=== PATIENT | female | born 1995 | race African-American/Black ===

== ENCOUNTER 2016-11-21 17:45 | Emergency (ER) | payer SELFPAY ==
--- NOTE | 2016-11-21 18:46 | ER Document Report ---
ED General - General Mode of Arrival: Ambulatory Information source: Patient TRAVEL OUTSIDE OF THE U.S. IN LAST 30 DAYS: No - HPI Onset: Other Severity: None Recently seen / treated by doctor: Yes - General Chief Complaint: Medication Refill Stated Complaint: MEDICATION REFILL Notes: Patient is a 20-year-old female that presents to the emergency department today with complaints of needing a refill on her Seroquel XR 400 mg #90 as well as a prescription for trichomonas treatment. Patient states the pharmacy will not fill her prescription for her standard Seroquel because it was written out of [place], [place]. Patient states she was diagnosed with Trichomonas a few days ago before moving here from [place] however she was not prescribed any medication for this as she was called with the results. Patient requesting both medications but denies any concerning or worsening symptoms. (NENO YEH) Past Medical History - General Information source: Patient - Social History Smoking Status: Never Smoker Cigarette use (# per day): No Frequency of alcohol use: None Drug Abuse: None Lives with: Family Family History: Reviewed & Not Pertinent Psychiatric Medical History: Reports: Hx Anxiety, Hx Depression Surgical Hx: Negative Review of Systems - Review of Systems Constitutional: No symptoms reported EENT: No symptoms reported Cardiovascular: No symptoms reported Respiratory: No symptoms reported Gastrointestinal: No symptoms reported Genitourinary: No symptoms reported Female Genitourinary: No symptoms reported Musculoskeletal: No symptoms reported Skin: No symptoms reported Hematologic/Lymphatic: No symptoms reported Neurological/Psychological: No symptoms reported -: Yes All other systems reviewed and negative Physical Exam - Vital signs Vitals: Temp Pulse Resp BP Pulse Ox 98.3 F 99 16 135/73 H 99 11/21/16 17:51 11/21/16 17:51 11/21/16 17:51 11/21/16 17:51 11/21/16 17:51 - Notes Notes: Physical Exam: General: Alert, appears well. HEENT: Normocephalic. Atraumatic. PERRL. Extraocular movements intact. Oropharynx clear. Neck: Supple. Non-tender. Respiratory: No respiratory distress. Clear and equal breath sounds bilaterally. Cardiovascular: Regular rate and rhythm. Abdominal: Obese. Non-tender. No distension. Normal Bowel Sounds. Back: Non-tender. No deformity or step off. Extremities: Moves all four extremities. Upper extremities: Normal inspection. Normal ROM. Lower extremities: Normal inspection. No edema. Normal ROM. Neurological: Normal cognition. AAOx4. Normal speech. Psychological: Normal affect. Normal Mood. Skin: Warm. Dry. Normal color. (NENO YEH) Course - Re-evaluation Re-evalutation: 11/21/16 Patient is a pleasant 20-year-old female who comes in requesting a prescription for Seroquel as her out of state prescription from [place] cannot be filled here today. Patient also states that she was told she had trichomonas and did not receive treatment for an [facility] [place]. Patient would like to be given Flagyl here in the emergency department. She does not want a pelvic exam. Patient has no other complaints. She'll be discharged home and is to follow-up with a primary care doctor and also mental health provider. No suicidal or homicidal ideation. Normal mood and affect. Stable for discharge. (JOHANA FOREMAN) - Vital Signs Vital signs: Temp Pulse Resp BP Pulse Ox 98.4 F 67 16 116/54 L 99 11/21/16 19:29 11/21/16 19:29 11/21/16 19:29 11/21/16 19:29 11/21/16 19:29 Discharge - Discharge Clinical Impression: Trichomonas contact, untreated, Medication refill Condition: Stable Disposition: HOME, SELF-CARE Instructions: Trichomonas Infection (OM), Depression (OM), Family Physicians / Practices Additional Instructions: Please follow-up with a mental health care provider when you are able. Prescriptions: Quetiapine Fumarate [Seroquel Xr] 400 mg PO DAILY #30 tab.er.24h Scribe Attestation: 11/21/16 23:44 I personally performed the services described in the documentation, reviewed and edited the documentation which was dictated to the scribe in my presence, and it accurately records my words and actions. (JOHANA FOREMAN) Scribe Documentation - Scribe Written by Geovanni:: Geovanni Interiano, 11/21/20161940 acting as scribe for :: Franci
[2016-11-21] MEDS ORDERED: METRONIDAZOLE 500 MG TABLET PO ONE (19:06)
[2016-11-21 19:30] VITALS: BP 116/54
== END 2016-11-21 20:02 | disposition home or self-care (01) ==
LOC: ER 17:45
DX: Z76.0 Encounter for issue of repeat prescription (principal); A59.9 Trichomoniasis, unspecified; Z79.899 Other long term (current) drug therapy
CPT/HCPCS: 99281

== ENCOUNTER 2017-02-21 19:10 | Emergency (ER) | payer SELFPAY ==
[2017-02-21 19:28] VITALS: BP 127/84
--- NOTE | 2017-02-21 20:02 | ER Document Report ---
HPI - HPI Patient complains to provider of: right ear pain Pain Level: 4 Context: 21 yo female c/o right ear pain x 1 day. no fever. Associated Symptoms: None Exacerbated by: Denies Relieved by: Denies Similar symptoms previously: No Recently seen / treated by doctor: No - ROS Systems Reviewed and Negative: Yes All other systems reviewed and negative - REPRODUCTIVE LMP: 02-09-17 - DERM Skin Color: Normal Past Medical History - General Information source: Patient - Social History Smoking Status: Current Every Day Smoker Frequency of alcohol use: None Drug Abuse: None Lives with: Family Family History: Reviewed & Not Pertinent Patient has suicidal ideation: No Patient has homicidal ideation: No - Medical History Medical History: Negative Renal/ Medical History: Denies: Hx Peritoneal Dialysis Psychiatric Medical History: Reports: Hx Anxiety, Hx Depression - Immunizations Hx Diphtheria, Pertussis, Tetanus Vaccination: Yes Vertical Provider Document - CONSTITUTIONAL Agree With Documented VS: Yes Exam Limitations: No Limitations General Appearance: WD/WN, No Apparent Distress, Obese - INFECTION CONTROL TRAVEL OUTSIDE OF THE U.S. IN LAST 30 DAYS: No - HEENT HEENT: Atraumatic, PERRLA. negative: Tympanic Membrane Bulging - TM dull, + effusion - NECK Neck: Normal Inspection, Supple - RESPIRATORY Respiratory: Breath Sounds Normal, No Respiratory Distress O2 Sat by Pulse Oximetry: 98 - CARDIOVASCULAR Cardiovascular: Regular Rate, Regular Rhythm - GI/ABDOMEN Gastrointestinal: Abdomen Soft, Abdomen Non-Tender - MUSCULOSKELETAL/EXTREMETIES Musculoskeletal/Extremeties: MAEW, FROM, Non-Tender - NEURO Level of Consciousness: Awake, Alert, Appropriate Course - Vital Signs Vital signs: Temp Pulse Resp BP Pulse Ox 98.2 F 99 17 127/84 H 98 02/21/17 19:26 02/21/17 19:26 02/21/17 19:26 02/21/17 19:26 02/21/17 19:26 Discharge - Discharge Clinical Impression: Right serous otitis media Qualifiers: Chronicity: acute Recurrence: not specified as recurrent Qualified Code(s): H65.01 - Acute serous otitis media, right ear Condition: Stable Disposition: HOME, SELF-CARE Instructions: Serous Otitis Media ([facility]), Decongestant-Antihistamine Medication ([facility]) Additional Instructions: You physical exam is consistant with serous otitis media. which is fluids behind the ear drum, not infection Recommend over the counter anthi-histamine decongestant such as Meghan D or Zytrec D Motrin for discomfort follow up with your primary care if symptoms persist
== END 2017-02-21 20:17 | disposition home or self-care (01) ==
LOC: ER 19:10
DX: H65.01 Acute serous otitis media, right ear (principal); H92.01 Otalgia, right ear; F17.200 Nicotine dependence, unspecified, uncomplicated
CPT/HCPCS: 99282

== ENCOUNTER 2018-01-16 01:02 | Emergency (ER) | payer MEDICAID ==
[2018-01-16 01:24] VITALS: BP 128/74
[2018-01-16] MEDS ORDERED: LIDOCAINE 2% VISCOUS SOLN 20 ML UDCUP PO ONE (01:58)
[2018-01-16] MEDS ORDERED: METOCLOPRAMIDE HCL ORAL SOLN 10 MG/10 ML UDCUP PO ONE (01:58)
[2018-01-16] MEDS ORDERED: MAG HYDROX/AL HYDROX/SIMETH SUSP 30 ML UDCUP PO ONE (01:58)
--- NOTE | 2018-01-16 02:04 | ER Document Report ---
HPI - HPI Patient complains to provider of: medication side effects Pain Level: 3 Context: Patient is a 22-year-old female who is currently at 11 weeks gestation that comes to the ED for chief complaint of not being able to tolerate clindamycin. She was diagnosed with bacterial vaginosis by her primary care, placed on Flagyl which made her have nausea and vomiting reportedly, she was switched to clindamycin and when she took her dose tonight she states she became nauseated and vomited. She states that when she vomited she started feeling discomfort in her throat and she still has discomfort in her throat. She has been able to swallow food and water without difficulty since the vomiting episode. She denies any other complaints including denying abdominal pain, bleeding, dizziness. She does not have discharge vaginally. Past Medical History - General Information source: Patient - Social History Smoking Status: Never Smoker Frequency of alcohol use: None Drug Abuse: None Lives with: Family Family History: Reviewed & Not Pertinent Renal/ Medical History: Denies: Hx Peritoneal Dialysis Psychiatric Medical History: Reports: Hx Anxiety, Hx Depression Surgical Hx: Negative - Immunizations Hx Diphtheria, Pertussis, Tetanus Vaccination: Yes Vertical Provider Document - CONSTITUTIONAL General Appearance: WD/WN, No Apparent Distress - INFECTION CONTROL TRAVEL OUTSIDE OF THE U.S. IN LAST 30 DAYS: No - HEENT HEENT: Atraumatic, Normal ENT Exam, Normocephalic - NECK Neck: Normal Inspection - RESPIRATORY Respiratory: Breath Sounds Normal, No Respiratory Distress - CARDIOVASCULAR Cardiovascular: Regular Rate, Regular Rhythm - GI/ABDOMEN Gastrointestinal: Abdomen Soft, Abdomen Non-Tender - BACK Back: Normal Inspection - NEURO Level of Consciousness: Awake, Alert, Appropriate - DERM Integumentary: Warm, Dry, No Rash Course - Re-evaluation Re-evalutation: Patient given GI cocktail, after this she was asymptomatic. Unremarkable physical exam, unremarkable vital signs. Because she has been diagnosed with bacterial vaginosis, because she is not tolerating Flagyl or clindamycin but she is tolerating food and other medications without difficulty, she will be given MetroGel for treatment of BV instead. I discussed this with patient in detail. Discussed follow-up and return precautions. She states satisfaction and agreement with plan. - Vital Signs Vital signs: Temp Pulse Resp BP Pulse Ox 98.7 F 74 20 128/74 H 100 01/16/18 01:12 01/16/18 01:12 01/16/18 01:12 01/16/18 01:12 01/16/18 01:12 Discharge - Discharge Clinical Impression: Medication side effects Condition: Stable Disposition: HOME, SELF-CARE Additional Instructions: Recommendation is for you to stop the clindamycin and instead use the MetroGel for treatment of bacterial vaginosis. Follow-up with your provider for additional evaluation and management. Return for any concerning symptoms including returned vomiting, abdominal pain, fever, or any other concerning symptoms. Prescriptions: Metronidazole [Metrogel-Vaginal] 70 gm VG ASDIR #1 gel.w.appl
== END 2018-01-16 03:09 | disposition home or self-care (01) ==
LOC: ER 01:02
DX: O9A.211 Injury, poisoning and certain other consequences of external causes complicating pregnancy, first trimester (principal); R11.2 Nausea with vomiting, unspecified; T36.95XA Adverse effect of unspecified systemic antibiotic, initial encounter; O23.591 Infection of other part of genital tract in pregnancy, first trimester; B96.89 Other specified bacterial agents as the cause of diseases classified elsewhere; O26.891 Other specified pregnancy related conditions, first trimester; R09.89 Other specified symptoms and signs involving the circulatory and respiratory systems; Z3A.11 11 weeks gestation of pregnancy
CPT/HCPCS: 99283; J3490 ×3

== ENCOUNTER 2018-03-31 12:35 | Emergency (ER) | payer MEDICAID ==
[2018-03-31 12:48] VITALS: BP 123/62
--- NOTE | 2018-03-31 14:09 | ER Document Report ---
ED Medical Screen (RME) - General Chief Complaint: Vaginal Bleeding Stated Complaint: ABDOMINAL PAIN Time Seen by Provider: 03/31/18 14:01 TRAVEL OUTSIDE OF THE U.S. IN LAST 30 DAYS: No - HPI Notes: 03/31/18 14:08 Pt is a approx 22-23 weeks c/o bleeding, cramping. I called [facility] is state to send her directly to them. pt in agreement. Vitals acceptable. - Related Data Allergies/Adverse Reactions: No Known Allergies Allergy (Verified 03/31/18 12:38) Past Medical History Renal/ Medical History: Denies: Hx Peritoneal Dialysis Psychiatric Medical History: Reports: Hx Anxiety, Hx Depression - Immunizations Hx Diphtheria, Pertussis, Tetanus Vaccination: Yes Physical Exam - Vital signs Vitals: Temp Pulse Resp BP Pulse Ox 98.3 F 92 20 123/62 100 03/31/18 12:48 03/31/18 12:48 03/31/18 12:48 03/31/18 12:48 03/31/18 12:48 Course - Vital Signs Vital signs: Temp Pulse Resp BP Pulse Ox 98.3 F 92 20 123/62 100 03/31/18 12:48 03/31/18 12:48 03/31/18 12:48 03/31/18 12:48 03/31/18 12:48 Doctor's Discharge - Discharge Referrals: DONNY CUMMINS DO [Primary Care Provider] - Follow up as needed
[2018-03-31 14:24] LABS: ABSOLUTE BASOPHILS # (AUTO) 0.1 10^3/uL (0.0-0.2); ABSOLUTE EOSINOPHILS # (AUTO) 0.1 10^3/uL (0.0-0.6); ABSOLUTE LYMPHOCYTES (AUTO) 1.8 10^3/uL (0.5-4.7); ABSOLUTE MONOCYTES (AUTO) 0.5 10^3/uL (0.1-1.4); ABSOLUTE NEUT (AUTO) 9.3 10^3/uL (1.7-8.2); BASOPHILS % (AUTO) 0.7 % (0-2); EOSINOPHILS % (AUTO) 0.6 % (0-6); HEMATOCRIT 30.7 % (36.0-47.0); HEMOGLOBIN 10.3 g/dL (12.0-15.5); LYMPHOCYTES % (AUTO) 15.2 % (13-45); MEAN CORPUSCULAR HEMOGLOBIN 28.6 pg (27.0-33.4); MEAN CORPUSCULAR HGB CONC 33.6 g/dL (32.0-36.0); MEAN CORPUSCULAR VOLUME 85 fl (80-97); MONOCYTES % (AUTO) 4.3 % (3-13); PLATELET COUNT 299 10^3/uL (150-450); RED CELL DISTRIBUTION WIDTH 14.7 % (11.5-14.0); SEGMENTED NEUTROPHILS % (AUTO) 79.2 % (42-78); TOTAL CELLS COUNTED % (AUTO) 100 %; WHITE BLOOD COUNT 11.7 10^3/uL (4.0-10.5)
[2018-03-31 14:36] LABS: APPEARANCE,URINE CLOUDY; BILIRUBIN,URINE NEGATIVE (NEGATIVE); COLOR,URINE YELLOW; GLUCOSE, URINE NEGATIVE (NEGATIVE); KETONES,URINE NEGATIVE (NEGATIVE); LEUKOCYTE ESTERASE,URINE LARGE (NEGATIVE); NITRITE,URINE NEGATIVE (NEGATIVE); PROTEIN,URINE NEGATIVE (NEGATIVE); URINE SPECIFIC GRAVITY 1.012; UROBILINOGEN,URINE NEGATIVE mg/dL (<2.0)
[2018-03-31 14:51] LABS: ALANINE AMINOTRANSFERASE 27 U/L (9-52); ALBUMIN 3.7 g/dL (3.5-5.0); ALKALINE PHOSPHATASE 90 U/L (38-126); ANION GAP 13 (5-19); ASPARTATE AMINO TRANSFERASE 24 U/L (14-36); BILIRUBIN,DIRECT 0.3 mg/dL (0.0-0.4); BILIRUBIN,TOTAL 0.6 mg/dL (0.2-1.3); BLOOD UREA NITROGEN 4 mg/dL (7-20); CALCIUM 9.3 mg/dL (8.4-10.2); CARBON DIOXIDE 20 mmol/L (22-30); CHLORIDE 105 mmol/L (98-107); GLUCOSE 76 mg/dL (75-110); POTASSIUM 3.9 mmol/L (3.6-5.0); SODIUM 137.8 mmol/L (137-145); TOTAL PROTEIN 7.8 g/dL (6.3-8.2)
== END 2018-03-31 14:21 | disposition admitted as inpatient to this hospital (09) ==
LOC: ER 12:35
DX: O46.90 Antepartum hemorrhage, unspecified, unspecified trimester (principal); O26.899 Other specified pregnancy related conditions, unspecified trimester; R10.9 Unspecified abdominal pain; Z3A.00 Weeks of gestation of pregnancy not specified
CPT/HCPCS: 36415; 80053; 81001; 85025; 86900; 86901; 87086; 87088; 87186; 99284

== ENCOUNTER 2018-03-31 14:16 | Outpatient (CLI) | payer MEDICAID ==
[2018-03-31 15:58] LABS: T.VAGINALIS (WET MOUNT) NO TRICHOMONAS SEEN; WBCS (WET MOUNT) 2+ WBCS SEEN; YEAST (WET MOUNT) NO YEAST SEEN
[2018-03-31 15:59] LABS: RBCS (WET MOUNT) RARE RBCS SEEN
--- NOTE | 2018-03-31 16:18 | Admission Physical ---
Datetime Report Generated by CPN: 03/31/2018 16:18 CURRENT ADMISSION Chief Complaint: Suspected Ruptured Membranes Indication for Induction: Not Applicable Admit Impression : , Intrauterine ; Ruptured Membranes Admit Impression- Other: incometent cervix Admit Plan: Admit to Unit ALLERGIES Medication Allergies: No Medication Allergies: No Known Allergies (03/31/2018) Latex: No Latex Allergies Food Allergies: no Environmental Allergies: no OBSTETRICAL HISTORY EDC: 08/05/2018 00:00 : 3 Para: 0 Term: 0 : 0 SAB: 0 IAB: 2 Ectopic: 0 Livin Cesareans: 0 VBACs: 0 Multiple Births: 0 PHYSICAL EXAM General: Normal HEENT: Normal Neurologic: Normal Thyroid: Normal Heart: Normal Lungs: Normal Breast: Deferred Back: Normal Abdomen: Normal Genitourinary Exam: Normal Extremities: Normal DTRs: Normal Pelvic Type: Adequate Vital Signs: Reviewed MEMBRANES Pooling: Positive Membranes: Ruptured FETUS A EGA: 21.6 FHR- Baseline: 150 Presentation: Breech Admit Comment: Will admit and begin observation. INFORMED CONSENT Signature: with User ID: Nell
--- NOTE | 2018-03-31 17:16 | RADIOLOGY REPORT (SQ) ---
EXAM DESCRIPTION: U/S OB LIMITED COMPLETED DATE/TIME: 03/31/2018 4:54 pm REASON FOR STUDY: growth and position COMPARISON: None. TECHNIQUE: Limited transabdominal grayscale ultrasound for evaluation of specific requested obstetri cassie parameters. LIMITATIONS: None. FINDINGS: CERVICAL LENGTH: Cervix is open 5.7 cm. Bulging membranes are seen. FHR: 152 beats per minute. PRESENTATION: Breech. OTHER: Gestation of 20 weeks 5 days. IMPRESSION: 2nd trimester with open cervix and bulging membranes. Findings as above. TECHNICAL DOCUMENTATION: JOB ID: [id number] [employer]- All Rights Reserved Reading location - IP/workstation name: [email or web address]
[2018-03-31 17:33] LABS: CHLAM PCR NOT DETECTED (NOT DETECT); GON PCR NOT DETECTED (NOT DETECT)
--- NOTE | 2018-03-31 18:36 | PDOC TRANSFER SUMMARY ---
General Admission Date/PCP: DONNY CUMMINS DO Admission Date: 03/31/18 Transfer Date: 03/31/18 Accepting Facility: [facility] Accepting Physician: Kuldeep Resuscitation Status: Full Code - Transfer Diagnosis (1) premature rupture of membranes Is this a current diagnosis for this admission?: Yes - Transfer Medications Home Medications: Vit,Calc76/Iron/Folic [Prenatabs Rx Tablet] 1 each PO DAILY 03/31/18 - Allergies Allergies/Adverse Reactions: No Known Allergies Allergy (Verified 03/31/18 12:38) Hospital Course Hospital Course: She has an incompetent cervix and has membranes at a dialated cervix. The baby is in a footling breech presentation. Gestational age is 22wks. We are transferring her at her request for possible resusitation of a fetus at delivery. Physical Exam Vital Signs: Intake & Output 03/30/18 03/31/18 04/01/18 06:59 06:59 06:59 Weight 123.3 kg General appearance: PRESENT: no acute distress Head exam: PRESENT: atraumatic Respiratory exam: PRESENT: accessory muscle use Cardiovascular exam: PRESENT: bradycardia Vascular exam: PRESENT: normal capillary refill Neurological exam: PRESENT: alert - cervix on sterile spec shows membranes at the cervix. Some fluid in the vagina. Results Impressions: Obstetrics Ultrasound 03/31/18 16:07 IMPRESSION: 2nd trimester with open cervix and bulging membranes. Findings as above. Plan Discharge Plan: Plan transfer at her request for evaluation.
== END 2018-03-31 20:15 | disposition short-term general hospital (02) ==
LOC: LC 14:16
PROVIDERS: ATTEND Obstetrics & Gynecology
PROC: 4A1HXCZ Monitoring of Products of Conception, Cardiac Rate, External Approach (ICD-10-PCS; principal; 2018-03-31)
DX: O42.912 Preterm premature rupture of membranes, unspecified as to length of time between rupture and onset of labor, second trimester (principal); O34.32 Maternal care for cervical incompetence, second trimester; Z3A.22 22 weeks gestation of pregnancy
CPT/HCPCS: 76815; 87210; 87491; 87591

== ENCOUNTER 2018-07-03 12:34 | Emergency (ER) | payer MEDICAID ==
[2018-07-03 12:39] VITALS: BP 135/74
--- NOTE | 2018-07-03 13:11 | ER Document Report ---
ED Hand/Wrist Injury - General Mode of Arrival: Ambulatory Information source: Patient TRAVEL OUTSIDE OF THE U.S. IN LAST 30 DAYS: No <NENO YEH - Last Filed: 07/03/18 13:20> <DUGLAS SEXTON - Last Filed: 07/03/18 13:39> - General Chief Complaint: Hand Pain Stated Complaint: HAND PAIN Time Seen by Provider: 07/03/18 13:04 Notes: 22-year-old female that presents to the emergency department today with complaints of bilateral wrist pain with associated finger numbness across all 10 fingers. Patient states she has had the symptoms for approximately a week and a half. Patient states her symptoms are the worst when she wakes up and while sleeping. Patient denies any new activities, injury, trauma, swelling, or new medications. (NENO YEH) - Related Data Allergies/Adverse Reactions: No Known Allergies Allergy (Verified 03/31/18 12:38) Past Medical History - General Information source: Patient - Social History Smoking Status: Current Every Day Smoker Cigarette use (# per day): Yes Chew tobacco use (# tins/day): No Frequency of alcohol use: None Drug Abuse: None Family History: Reviewed & Not Pertinent Patient has suicidal ideation: No Patient has homicidal ideation: No Renal/ Medical History: Denies: Hx Peritoneal Dialysis Psychiatric Medical History: Reports: Hx Anxiety, Hx Depression - Immunizations Hx Diphtheria, Pertussis, Tetanus Vaccination: Yes <NENO YEH - Last Filed: 07/03/18 13:20> Review of Systems - Review of Systems Constitutional: No symptoms reported EENT: No symptoms reported Cardiovascular: No symptoms reported Respiratory: No symptoms reported Gastrointestinal: No symptoms reported Genitourinary: No symptoms reported Female Genitourinary: No symptoms reported Musculoskeletal: See HPI, Other - bilateral wrist pain Skin: No symptoms reported Hematologic/Lymphatic: No symptoms reported Neurological/Psychological: See HPI, Tingling - finger tips -: Yes All other systems reviewed and negative <NENO YEH - Last Filed: 07/03/18 13:20> Physical Exam <NENO YEH - Last Filed: 07/03/18 13:20> <DUGLAS SEXTON - Last Filed: 07/03/18 13:39> - Vital signs Vitals: Temp Pulse Resp BP Pulse Ox 99.0 F 91 16 135/74 H 98 07/03/18 12:38 07/03/18 12:38 07/03/18 12:38 07/03/18 12:38 07/03/18 12:38 - Notes Notes: PHYSICAL EXAM GENERAL: Alert, interacts well. No acute distress. HEAD: Normocephalic, atraumatic. EYES: Pupils equal, round, and reactive to light. Extraocular movements intact. ENT: Oral mucosa moist, tongue midline. NECK: Full range of motion. Supple. Trachea midline. LUNGS: No respiratory distress. HEART: Regular rate and rhythm. EXTREMITIES: Moves all 4 extremities spontaneously. Radial pulses 2/4 bilaterally. Positive Tinel's sign and positive Phalen's test. Denies worsening of pain with elevation of arms. NEUROLOGICAL: Alert and oriented x3. Normal speech. Sensation intact distally. PSYCH: Normal affect, normal mood. SKIN: Warm, dry, normal turgor. No rashes or lesions noted. (NENO YEH) Course <NENO YEH - Last Filed: 07/03/18 13:20> <DUGLAS SEXTON - Last Filed: 07/03/18 13:39> - Re-evaluation Re-evalutation: 07/03/18 13:11 Tinel and Phalen's test positive bilaterally, patient also has neuropathy and pain in the fourth and fifth digit. Suspicious for both median and ulnar neuropathy. Discussed with patient that stretching and splinting will help with the median neuropathy however she also has signs of ulnar neuropathy which usually comes from the elbow. Instructed patient on stretching and anti- inflammatories. Discussed with patient that if her symptoms do not improve within the next week and a half she will need to follow-up with orthopedic surgery. Discharge to home. No recent injury, no indication for x-rays, minimal suspicion for cervical neuropathy given the distribution of the pain. (DUGLAS SEXTON) - Vital Signs Vital signs: Temp Pulse Resp BP Pulse Ox 99.0 F 91 16 135/74 H 98 07/03/18 12:38 07/03/18 12:38 07/03/18 12:38 07/03/18 12:38 07/03/18 12:38 Procedures - Immobilization right wrist Pre-Proc Neuro Vasc Exam: Abnormal - tingling Immobilizer type: Cock-up Performed by: REBECA Post-Proc Neuro Vasc Exam: Unchanged from pre-exam Alignment checked and good: Yes left wrist Pre-Proc Neuro Vasc Exam: Abnormal - tingling Immobilizer type: Cock-up Performed by: REBECA Post-Proc Neuro Vasc Exam: Unchanged from pre-exam Alignment checked and good: Yes <DUGLAS SEXTON - Last Filed: 07/03/18 13:39> Discharge <NENO YEH - Last Filed: 07/03/18 13:20> <DUGLAS SEXTON - Last Filed: 07/03/18 13:39> - Discharge Clinical Impression: Bilateral hand pain, 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 This syndrome is due to pressure on a nerve in the wrist. The pressure may be caused by an old injury, hard work using the wrist, work involving repeated motions of the hand, wrist positions that keep pressure on the joint, or arthritis in the wrist. Typical symptoms are tingling, numbness, and pain in the palm, thumb, index and middle fingers, and one side of the ring finger. Often a splint, ice packs, and antiinflammatory medication make the symptoms go away. If the physician feels that your problem is chronic, you will be referred to a specialist for further care. If symptoms do not go away, carpal tunnel syndrome may require surgery. You should call the doctor if pain increases, if you develop difficulty using the thumb or fingers, or if major swelling occurs. Please take ibuprofen 600 mg every 8 hours as needed for pain over the next 3 days. Forms: Return to Work Referrals: DONNY CUMMINS DO [Primary Care Provider] - Follow up as needed CONSTANZA LEE DO [ACTIVE STAFF] - Follow up in 1 month Scribe Attestation: 07/03/18 13:39 I personally performed the services described in the documentation, reviewed and edited the documentation which was dictated to the scribe in my presence, and it accurately records my words and actions. (DUGLAS SEXTON) Scribe Documentation - Scribe Written by Cedibe:: Geovanni Interiano, 07/03/2018 1324 acting as scribe for :: Juliet <NENO YEH - Last Filed: 07/03/18 13:20>
== END 2018-07-03 13:20 | disposition home or self-care (01) ==
LOC: ER 12:34
DX: G56.23 Lesion of ulnar nerve, bilateral upper limbs (principal); G56.13 Other lesions of median nerve, bilateral upper limbs; M79.641 Pain in right hand; M79.642 Pain in left hand; M25.531 Pain in right wrist; M25.532 Pain in left wrist; R20.0 Anesthesia of skin; F17.210 Nicotine dependence, cigarettes, uncomplicated
CPT/HCPCS: 99283; L3908 ×2

== ENCOUNTER 2019-04-17 14:46 | Emergency (ER) | payer SELFPAY ==
--- NOTE | 2019-04-17 15:08 | ER Document Report ---
ED Medical Screen (RME) - General Chief Complaint: Vaginal Discharge Stated Complaint: VAGINAL ITCH Time Seen by Provider: 04/17/19 15:06 Primary Care Provider: DONNY CUMMINS DO [Primary Care Provider] - Follow up as needed Mode of Arrival: Ambulatory Information source: Patient Notes: 23-year-old female presented to ED for complaint of vaginal discharge with odor vaginal itching. She states is been for several days. She is alert oriented respirations regular and unlabored speaking in full sentences walks with even steady gait. I have greeted and performed a rapid initial assessment of this patient. A comprehensive ED assessment and evaluation of the patient, analysis of test results and completion of medical decision making process will be conducted by an additional ED providers. TRAVEL OUTSIDE OF THE [place]. IN LAST 30 DAYS: No - Related Data Allergies/Adverse Reactions: No Known Allergies Allergy (Verified 04/17/19 14:48) Past Medical History - Social History Frequency of alcohol use: None Drug Abuse: None Renal/ Medical History: Denies: Hx Peritoneal Dialysis Psychiatric Medical History: Reports: Hx Anxiety, Hx Depression - Immunizations Hx Diphtheria, Pertussis, Tetanus Vaccination: Yes Physical Exam - Vital signs Vitals: Temp Pulse Resp BP Pulse Ox 98.7 F 107 H 20 130/80 H 96 04/17/19 14:51 04/17/19 14:51 04/17/19 14:51 04/17/19 14:51 04/17/19 14:51 Course - Vital Signs Vital signs: Temp Pulse Resp BP Pulse Ox 98.7 F 107 H 20 130/80 H 96 04/17/19 14:51 04/17/19 14:51 04/17/19 14:51 04/17/19 14:51 04/17/19 14:51 Doctor's Discharge - Discharge Referrals: DONNY CUMMINS DO [Primary Care Provider] - Follow up as needed
--- NOTE | 2019-04-17 16:22 | ER Document Report ---
ED GI/ - General Chief Complaint: Vaginal Discharge Stated Complaint: VAGINAL ITCH Time Seen by Provider: 04/17/19 15:06 Primary Care Provider: DONNY CUMMINS DO [NO LOCAL MD] - Follow up as needed Mode of Arrival: Ambulatory Notes: Patient is a 23-year-old female presents to the emergency department with a chief complaint of vaginal discharge. Patient states over the past week she has had an increase in vaginal discharge that is white to clear in color. Patient states there is an odor. Patient states she feels like her underwear is always wet. Patient states she has not had any itching. Patient denies pelvic pain, abdominal pain, nausea, vomiting or diarrhea. Patient reports she is sexually active and is not on any control currently. Patient reports her last menstrual cycle was March 27. Patient states she is not concerned for sexually transmitted diseases. Patient states she may have bacterial vaginosis. Patient denies urinary symptoms. TRAVEL OUTSIDE OF THE [place] IN LAST 30 DAYS: No - Related Data Allergies/Adverse Reactions: No Known Allergies Allergy (Verified 04/17/19 14:48) Past Medical History - General Information source: Patient - Social History Smoking Status: Never Smoker Frequency of alcohol use: None Drug Abuse: None Lives with: Family Family History: Reviewed & Not Pertinent Patient has suicidal ideation: No Patient has homicidal ideation: No - Past Medical History Cardiac Medical History: Reports: None Pulmonary Medical History: Reports: None EENT Medical History: Reports: None Neurological Medical History: Reports: None Endocrine Medical History: Reports: None Renal/ Medical History: Reports: None. Denies: Hx Peritoneal Dialysis Malignancy Medical History: Reports: None GI Medical History: Reports: None Musculoskeletal Medical History: Reports None Skin Medical History: Reports None Psychiatric Medical History: Reports: Hx Anxiety, Hx Depression Traumatic Medical History: Reports: None Infectious Medical History: Reports: None Surgical Hx: Negative - Immunizations Hx Diphtheria, Pertussis, Tetanus Vaccination: Yes Review of Systems - Review of Systems Constitutional: No symptoms reported EENT: No symptoms reported Cardiovascular: No symptoms reported Respiratory: No symptoms reported Gastrointestinal: No symptoms reported Genitourinary: No symptoms reported Female Genitourinary: See HPI Musculoskeletal: No symptoms reported Skin: No symptoms reported Hematologic/Lymphatic: No symptoms reported Neurological/Psychological: No symptoms reported Physical Exam - Vital signs Vitals: Temp Pulse Resp BP Pulse Ox 98.7 F 107 H 20 130/80 H 96 04/17/19 14:51 04/17/19 14:51 04/17/19 14:51 04/17/19 14:51 04/17/19 14:51 Interpretation: Tachycardic - Notes Notes: GENERAL: Well-appearing, well-nourished and in no acute distress. HEAD: Atraumatic, normocephalic. EYES: Pupils equal round and reactive to light, extraocular movements intact, sclera anicteric, conjunctiva are normal. ENT: TMs normal, nares patent, oropharynx clear without exudates. Moist mucous membranes. NECK: Normal range of motion, supple without lymphadenopathy or JVD. LUNGS: Breath sounds clear to auscultation bilaterally and equal. No wheezes rales or rhonchi. HEART: Regular rate and rhythm without murmurs, rubs or gallops. ABDOMEN: Soft, nontender, normoactive bowel sounds. No guarding, no rebound. No masses appreciated. BACK: No cervical, thoracic, lumbar midline tenderness. No saddle anesthesia, normal distal neurovascular exam. GENITOURINARY: Deferred. EXTREMITIES: Normal range of motion, no pitting or edema. No clubbing or c yanosis. NEUROLOGICAL: Cranial nerves II through XII grossly intact. Normal speech, normal gait. PSYCH: Normal mood, normal affect. SKIN: Warm, Dry, normal turgor, no rashes or lesions noted. Course - Re-evaluation Re-evalutation: 04/17/19 16:22 We will obtain a urinalysis, hCG and a wet mount with GC chlamydia. Patient is in agreement with this plan. 04/17/19 17:11 Wet mount was unremarkable did not show signs of bacterial vaginosis, trichomonas or yeast. Urinalysis is pending. Urine hCG is negative. - Vital Signs Vital signs: Temp Pulse Resp BP Pulse Ox 98.6 F 90 16 118/62 99 04/17/19 16:57 04/17/19 16:57 04/17/19 16:57 04/17/19 16:57 04/17/19 16:57 - Laboratory Laboratory results interpreted by me: 04/17/19 16:40 Urine Urobilinogen 2.0 H Ur Leukocyte Esterase TRACE H Laboratory 04/17/19 04/17/19 16:40 16:40 Urine HCG, Qual NEGATIVE Epi Cells (Wet Prep) 3+ EPITHELIALS SEEN Trichomonas (Wet Prep) NO TRICHOMONAS SEEN Vaginal WBC RARE WBCS SEEN Vaginal RBC NO RBCS SEEN Vaginal Yeast NO YEAST SEEN Procedures - Pelvic Exam Pelvic exam Time completed: 16:40 Cultures obtained: Yes Wet prep obtained: Yes Witnessed by: [facility] Notes: 04/17/19 16:41 External genitalia was unremarkable without lesions, swelling or erythema. Patient tolerated the insertion of the speculum well. Also able to visualize the cervix which was closed. There was a thick white vaginal discharge. Patient did not have any pain with the movement of the speculum. Discharge - Discharge Clinical Impression: Vaginal discharge Condition: Stable Disposition: HOME, SELF-CARE Additional Instructions: Today you are seen in the emergency department for vaginal discharge. Your testing was negative for yeast, bacterial vaginosis, trichomonas. You do not have a urinary tract infection and your test was negative. I have added on a urine culture and you will be contacted if you do require antibiotics for your urine. I am unsure why you are having an increase in your vaginal discharge. We did test you for gonorrhea and chlamydia and you will be contacted within the next 24 to 48 hours if you require an antibiotic for this. Please return to the emergency department if you develop pelvic pain, change in your vaginal discharge, fever, abdominal pain, nausea, vomiting or any concerning signs or symptoms. Referrals: DONNY CUMMINS DO [NO LOCAL MD] - Follow up as needed
[2019-04-17 16:56] LABS: RBCS (WET MOUNT) NO RBCS SEEN; T.VAGINALIS (WET MOUNT) NO TRICHOMONAS SEEN; WBCS (WET MOUNT) RARE WBCS SEEN; YEAST (WET MOUNT) NO YEAST SEEN
[2019-04-17 16:57] LABS: EPITHELIALS (WET MOUNT) 3+ EPITHELIALS SEEN
[2019-04-17 16:59] VITALS: BP 118/62
[2019-04-17 17:12] LABS: APPEARANCE,URINE SLIGHTLY-CLOUDY; BILIRUBIN,URINE NEGATIVE (NEGATIVE); COLOR,URINE YELLOW; GLUCOSE, URINE NEGATIVE (NEGATIVE); KETONES,URINE NEGATIVE (NEGATIVE); LEUKOCYTE ESTERASE,URINE TRACE (NEGATIVE); NITRITE,URINE NEGATIVE (NEGATIVE); PROTEIN,URINE NEGATIVE (NEGATIVE); URINE SPECIFIC GRAVITY 1.024
[2019-04-17 18:23] LABS: CHLAM PCR NOT DETECTED (NOT DETECT)
== END 2019-04-17 17:56 | disposition home or self-care (01) ==
LOC: ER 14:46
DX: N89.8 Other specified noninflammatory disorders of vagina (principal)
CPT/HCPCS: 81001; 81025; 87086; 87210; 87491; 87591

== ENCOUNTER 2019-06-01 15:47 | Emergency (ER) | payer OTHER ==
[2019-06-01] MEDS ORDERED: IBUPROFEN 800 MG TABLET PO ONE (17:02)
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
[2019-06-01] MEDS ORDERED: DIAZEPAM 5 MG TABLET PO ONE (21:57)
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
[2019-06-01 22:06] VITALS: BP 104/62
== END 2019-06-01 22:24 | disposition home or self-care (01) ==
LOC: ER 15:47
DX: M25.511 Pain in right shoulder (principal); V43.62XA Car passenger injured in collision with other type car in traffic accident, initial encounter

== ENCOUNTER 2019-07-14 19:04 | Emergency (ER) | payer OTHER ==
[2019-07-14] MEDS ORDERED: NAPROXEN 250 MG TABLET PO ONE (19:42)
--- NOTE | 2019-07-14 20:06 | RADIOLOGY REPORT (SQ) ---
EXAM DESCRIPTION: SHOULDER LEFT 2 OR MORE VIEWS COMPLETED DATE/TIME: 07/14/2019 7:54 pm REASON FOR STUDY: left shoulder pain COMPARISON: None. NUMBER OF VIEWS: Three views. TECHNIQUE: Internal rotation, external rotation, and Y view images acquired of the left shoulder. LIMITATIONS: None. FINDINGS: MINERALIZATION: Normal. BONES: No acute fracture. No worrisome bone lesions. JOINTS: No dislocation. VISUALIZED LUNGS AND RIBS: No pneumothorax. No rib fracture. SOFT TISSUES: No radiopaque foreign body. OTHER: No other significant finding. IMPRESSION: NO RADIOGRAPHIC EVIDENCE OF ACUTE INJURY. TECHNICAL DOCUMENTATION: JOB ID: [id number] [place]-72 2010 [employer]- All Rights Reserved Reading location - IP/workstation name: [email or web address] [place]
--- NOTE | 2019-07-14 20:45 | ER Document Report ---
HPI - HPI Time Seen by Provider: 07/14/19 19:38 Pain Level: 4 Context: Patient is a 30-year-old female who presents the emergency department with a chief complaint of left shoulder pain. Patient reports she has had left shoulder pain since Wednesday. Patient reports she has taken Tylenol and ibuprofen without much relief. Patient denies injury or fall. Patient reports she has not done any heavy lifting. Patient reports the left shoulder pain is worse with movement. Patient denies numbness or tingling to the left arm. Patient denies neck pain. - REPRODUCTIVE Reproductive: DENIES: : Past Medical History - General Information source: Patient - Social History Smoking Status: Never Smoker Frequency of alcohol use: None Drug Abuse: None Lives with: Family Family History: Reviewed & Not Pertinent Patient has suicidal ideation: No Patient has homicidal ideation: No - Past Medical History Cardiac Medical History: Reports: None Pulmonary Medical History: Reports: None EENT Medical History: Reports: None Neurological Medical History: Reports: None Endocrine Medical History: Reports: None Renal/ Medical History: Reports: None. Denies: Hx Peritoneal Dialysis Malignancy Medical History: Reports: None GI Medical History: Reports: None Musculoskeletal Medical History: Reports None Skin Medical History: Reports None Psychiatric Medical History: Reports: Hx Anxiety, Hx Depression - Immunizations Hx Diphtheria, Pertussis, Tetanus Vaccination: Yes Vertical Provider Document - CONSTITUTIONAL Exam Limitations: No Limitations General Appearance: No Apparent Distress - INFECTION CONTROL TRAVEL OUTSIDE OF THE [place] IN LAST 30 DAYS: No - HEENT HEENT: Atraumatic, Normal ENT Exam, Normocephalic, PERRLA - NECK Neck: Normal Inspection - RESPIRATORY Respiratory: Breath Sounds Normal, No Respiratory Distress - CARDIOVASCULAR Cardiovascular: Regular Rate, Regular Rhythm - GI/ABDOMEN Gastrointestinal: Abdomen Soft, Abdomen Non-Tender - MUSCULOSKELETAL/EXTREMETIES Notes: Patient has point tenderness noted to the left anterior shoulder. There is no edema, ecchymosis or erythema. Patient does have good range of motion to the left shoulder joint. - NEURO Level of Consciousness: Awake, Alert, Appropriate - DERM Integumentary: Warm, Dry, No Rash Course - Re-evaluation Re-evalutation: 07/14/19 21:03 I did inform the patient that her x-ray was negative. Patient does need to follow-up with her primary care physician. Please continue to use anti- inflammatories, ice or heat. Patient to follow-up with her primary care physician next week. - Vital Signs Vital signs: Temp Pulse Resp BP Pulse Ox 98.1 F 16 147/89 H 07/14/19 19:33 07/14/19 19:33 07/14/19 19:15 Discharge - Discharge Clinical Impression: Left shoulder pain Qualifiers: Chronicity: acute Qualified Code(s): M25.512 - Pain in left shoulder Condition: Stable Disposition: HOME, SELF-CARE Additional Instructions: *Today was in the emergency department for left shoulder pain. Your x-ray was negative, and your symptoms are consistent with a possible muscle strain. Please continue use warm or cool compresses and anti-inflammatories. I have given you a prescription for naproxen which is an anti-inflammatory. You can take this twice a day. Do not mix this with other anti-inflammatories such as Aleve or ibuprofen. Muscle Strain You have strained a muscle -- torn the fibers within the muscle. This often occurs with strenuous exertion, or during an injury that suddenly stretches the muscle. The seriousness of a strain varies. Some strains heal within days, others cause problems for months. X-rays cannot show a muscle strain. X-rays are taken only if symptoms suggest that a fracture could be present. The usual treatment of a muscle strain is rest and ice packs. Sometimes, a sling, splint, or crutches may be necessary to rest the muscle. The muscle can be used again once pain subsides. Severe strains require a special exercise and stretching program to prevent permanent stiffness and disability. Your doctor will advise you if this will be necessary. Call the doctor immediately if pain or swelling becomes severe, or if numbness or discoloration develop. Shoulder Injury You have injured your shoulder. This usually results from stretching or tearing of the tendons during trauma. Time and protection are required in order to heal properly. Many injuries are quite disabling, and should be taken seriously. Initial treatment includes cold packs and a sling to rest the shoulder. The physician has assessed the seriousness of your injury, and has outlined a treatment plan. Understand that this treatment may change, depending on how you progress. If a re-examination was recommended, it is important that you follow up as instructed. Some shoulder injuries (such as partial tear of the rotator cuff) are only suspected after you've failed to improve. Call us if there's severe pain, numbness, or loss of function. Prescriptions: Naproxen 500 mg PO BID PRN #14 tablet PRN Reason: Referrals: TAYA BARKER FNP-C [Primary Care Provider] - Follow up as needed
[2019-07-14 21:04] VITALS: BP 140/88
== END 2019-07-14 21:03 | disposition home or self-care (01) ==
LOC: ER 19:04
DX: M25.512 Pain in left shoulder (principal)
CPT/HCPCS: 99283

== ENCOUNTER 2020-02-17 21:59 | Emergency (ER) | payer BC, OTHER ==
--- NOTE | 2020-02-17 22:21 | ER Document Report ---
ED Medical Screen (RME) - General Chief Complaint: Other Stated Complaint: UNABLE TO SLEEP, WANTS THYROID CHECKED Time Seen by Provider: 02/17/20 22:15 Primary Care Provider: TAYA BARKER FNP-C [Primary Care Provider] - Follow up as needed Mode of Arrival: Ambulatory Information source: Patient Notes: HPI; 24-year-old female presents the emergency room complaining of difficulty sleeping for the past 2 to 3 weeks. States she takes doxepin to help her sleep states it has not been helping her. When she saw her therapist this week she recommend that she get her thyroid checked. Patient does not have a primary care physician so she is come to the ER requesting us to do "a thyroid check" she offers no other complaints. No chest pain, no shortness of breath, no difficulty breathing. No history of thyroid disorder. PE: Alert and oriented x3. No acute distress noted. Lungs: Clear to auscultation without rales, rhonchi, wheezes. Heart: Regular rate rhythm without murmurs, rubs, gallops. I have greeted and performed a rapid initial assessment of this patient. A comprehensive ED assessment and evaluation of the patient, analysis of test results and completion of the medical decision making process will be conducted by additional ED providers. I have specifically instructed the patient or family members with the patient to immediately return to any nursing staff should anything change in the patient's condition or with their chief complaint. TRAVEL OUTSIDE OF THE [place] IN LAST 30 DAYS: No - Related Data Allergies/Adverse Reactions: No Known Allergies Allergy (Verified 07/14/19 19:33) Past Medical History Renal/ Medical History: Denies: Hx Peritoneal Dialysis Psychiatric Medical History: Reports: Hx Anxiety, Hx Depression - Immunizations Hx Diphtheria, Pertussis, Tetanus Vaccination: Yes Physical Exam - Vital signs Vitals: Temp Pulse Resp BP Pulse Ox 98.6 F 101 H 18 133/66 H 96 02/17/20 22:10 02/17/20 22:10 02/17/20 22:10 02/17/20 22:10 02/17/20 22:10 Course - Vital Signs Vital signs: Temp Pulse Resp BP Pulse Ox 98.6 F 101 H 18 133/66 H 96 02/17/20 22:10 02/17/20 22:10 02/17/20 22:10 02/17/20 22:10 02/17/20 22:10 Doctor's Discharge - Discharge Referrals: TAYA BARKER FNP-C [Primary Care Provider] - Follow up as needed
[2020-02-17 23:28] LABS: ABSOLUTE EOSINOPHILS # (AUTO) 0.2 10^3/uL (0.0-0.6); ABSOLUTE LYMPHOCYTES (AUTO) 2.1 10^3/uL (0.5-4.7); ABSOLUTE MONOCYTES (AUTO) 0.4 10^3/uL (0.1-1.4); ABSOLUTE NEUT (AUTO) 3.6 10^3/uL (1.7-8.2); BASOPHILS % (AUTO) 0.6 % (0-2); EOSINOPHILS % (AUTO) 2.4 % (0-6); HEMATOCRIT 36.5 % (36.0-47.0); HEMOGLOBIN 12.1 g/dL (12.0-15.5); LYMPHOCYTES % (AUTO) 33.2 % (13-45); MEAN CORPUSCULAR HEMOGLOBIN 27.6 pg (27.0-33.4); MEAN CORPUSCULAR HGB CONC 33.2 g/dL (32.0-36.0); MEAN CORPUSCULAR VOLUME 83 fl (80-97); MONOCYTES % (AUTO) 6.8 % (3-13); PLATELET COUNT 312 10^3/uL (150-450); RED CELL DISTRIBUTION WIDTH 15.1 % (11.5-14.0); TOTAL CELLS COUNTED % (AUTO) 100 %; WHITE BLOOD COUNT 6.4 10^3/uL (4.0-10.5)
[2020-02-17 23:39] LABS: ALBUMIN 4.7 g/dL (3.5-5.0); ALKALINE PHOSPHATASE 128 U/L (38-126); ANION GAP 6 (5-19); ASPARTATE AMINO TRANSFERASE 105 U/L (14-36); BILIRUBIN,TOTAL 0.4 mg/dL (0.2-1.3); BLOOD UREA NITROGEN 9 mg/dL (7-20); CALCIUM 9.8 mg/dL (8.4-10.2); CARBON DIOXIDE 31 mmol/L (22-30); CHLORIDE 102 mmol/L (98-107); GLUCOSE 96 mg/dL (75-110); POTASSIUM 4.6 mmol/L (3.6-5.0); TOTAL PROTEIN 9.2 g/dL (6.3-8.2)
--- NOTE | 2020-02-18 00:21 | ER Document Report ---
Entered by DANIEL HAYES SCRIBE 02/17/20 [id number] Acting as scribe for:LETICIA CASTRO IV, MD ED General - General Chief Complaint: Other Stated Complaint: UNABLE TO SLEEP, WANTS THYROID CHECKED Time Seen by Provider: 02/17/20 22:15 Primary Care Provider: TAYA BARKER FNP-C [NURSE PRACTITIONER] - Follow up as needed Mode of Arrival: Ambulatory Information source: Patient Notes: This 24 year old female patient presents to the ED today with complaints of difficulty sleeping for the past x2-3 weeks. Patient states that she takes 50 mg Doxepin PO which usually works within an hour, but lately it takes x3-4 hours. She reports that her therapist advised her to come to the ED to check her thyroid levels to see if that is related to her inability to sleep. Denies any stress, change in work environment, or increaded caffeine intake. She does admit to weight gain, stating that she has gone from 289 lbs to 317 lbs in a span of x6-7 months. 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 Denies any other complaints. TRAVEL OUTSIDE OF THE [place] IN LAST 30 DAYS: No - Related Data Allergies/Adverse Reactions: No Known Allergies Allergy (Verified 07/14/19 19:33) Past Medical History - General Information source: Patient - Social History Smoking Status: Current Every Day Smoker Cigarette use (# per day): Yes Chew tobacco use (# tins/day): No Smoking Education Provided: No Frequency of alcohol use: None Drug Abuse: None Family History: Reviewed & Not Pertinent Patient has suicidal ideation: No Patient has homicidal ideation: No Pulmonary Medical History: Reports: Hx Asthma Psychiatric Medical History: Reports: Hx Anxiety, Hx Depression - Immunizations Hx Diphtheria, Pertussis, Tetanus Vaccination: Yes Review of Systems - Review of Systems Constitutional: See HPI, Other - Difficulty sleeping, Weight gain EENT: No symptoms reported Cardiovascular: No symptoms reported Respiratory: No symptoms reported Gastrointestinal: No symptoms reported Genitourinary: No symptoms reported Female Genitourinary: No symptoms reported Musculoskeletal: No symptoms reported Skin: No symptoms reported Hematologic/Lymphatic: No symptoms reported Neurological/Psychological: No symptoms reported -: Yes All other systems reviewed and negative Physical Exam - Vital signs Vitals: Temp Pulse Resp BP Pulse Ox 98.6 F 101 H 18 133/66 H 96 02/17/20 22:10 02/17/20 22:10 02/17/20 22:10 02/17/20 22:10 02/17/20 22:10 - General General appearance: Appears well, Alert In distress: None - HEENT Head: Normocephalic, Atraumatic Eyes: Normal Pupils: PERRL - Respiratory Respiratory status: No respiratory distress Chest status: Nontender Breath sounds: Normal Chest palpation: Normal - Cardiovascular Rhythm: Regular Heart sounds: Normal auscultation Murmur: No Friction rub: No Gallop: None auscultated - Abdominal Inspection: Normal Distension: No distension Bowel sounds: Normal Tenderness: Nontender - Abdomen soft Organomegaly: No organomegaly - Back Back: Normal, Nontender - Extremities General upper extremity: Normal inspection General lower extremity: Normal inspection - Neurological Neuro grossly intact: Yes Orientation: AAOx4 [place] Coma Scale Eye Opening: Spontaneous [place] Coma Scale Verbal: Oriented [place] Coma Scale Motor: Obeys Commands [place] Coma Scale Total: 15 - Psychological Associated symptoms: Normal affect, Normal mood - Skin Skin Temperature: Warm Skin Moisture: Dry Skin Color: Normal Course - Re-evaluation Re-evalutation: 02/18/20 00:35 Results of ED MSE discussed with patient. All questions were answered prior to discharge. Emergency signs and symptoms, reasons to return to the emergency department discussed with patient. - Vital Signs Vital signs: Temp Pulse Resp BP Pulse Ox 98.6 F 101 H 18 133/66 H 96 02/17/20 22:10 02/17/20 22:10 02/17/20 22:10 02/17/20 22:10 02/17/20 22:10 - Laboratory Result Diagrams: 02/17/20 23:11 02/17/20 23:11 Laboratory results interpreted by me: 02/17/20 02/17/20 23:11 23:11 RDW 15.1 H Carbon Dioxide 31 H AST 105 H ALT 143 H Alkaline Phosphatase 128 H Total Protein 9.2 H Discharge - Discharge Clinical Impression: Insomnia Qualifiers: Insomnia type: unspecified Qualified Code(s): G47.00 - Insomnia, unspecified Condition: Stable Disposition: HOME, SELF-CARE Additional Instructions: Return to the Emergency Department without delay if any worse. HOME CARE INSTRUCTIONS & INFORMATION: Thank you for choosing us for your medical needs. We hope you're satisfied with the care you received. After you leave, you must properly care for your problem and, at the same time, observe its progress. Any condition can change. Some illnesses can change rapidly over hours or days. If your condition worsens, return to the Emergency Department or see your physician promptly. ABOUT YOUR X-RAYS AND EKG'S: If you had an EKG or X-rays taken, they have been read by the Emergency Physician. The X-rays and EKG's will also be read by a Radiologist or Waiver Analyst within 24 hours. If discrepancies are noted, you will be notified by telephone. Please be certain the ED has a correct telephone number & address where you can be reached. Also, realize that some fractures or abnormalities do not show up on initial X-rays. If your symptoms continue, see your physician. ABOUT YOUR LABORATORY TEST: If you had laboratory tests, the results have been reviewed by the Emergency Physician. Some test results (for example cultures) may not be available for several days. You will be contacted if any test result shows you need additional treatment. Please be certain the ED has a correct telephone number and address where you can be reached. ABOUT YOUR MEDICATIONS: You will receive instructions on how to take your medicine on the prescription label you receive. Additional information may be provided by the Pharmacy. If you have questions afterwards, call the ED for clarification or further instructions. Some prescribed medications may cause drowsiness. Do not perform tasks such as driving a car or operating machinery without consulting your Pharmacist. If you feel you need a refill of pain medication, your condition will need re-evaluation. Please do not call for a refill of any medication. ABOUT YOUR SIGNATURE: Signature of this document acknowledges to followin. Understanding that you received emergency treatment and that you may be released before al medical problems are known or treated. Please be certain the ED has a correct phone number & address where you can be reached. 2. Acknowledgement that you will arrange for follow-up care as recommended. 3. Authorization for the Emergency Physician to provide information to your follow-up Physician in order to maximize your care. AT ANY TIME, IF YOUR SYMPTOMS CHANGE SIGNIFICANTLY OR WORSEN OR YOU DEVELOP NEW SYMPTOMS, RETURN TO THE EMERGENCY DEPARTMENT IMMEDIATELY FOR RE-EVALUATION. OUR GOAL IS TO PROVIDE EXCELLENT MEDICAL CARE! WE HOPE THAT WE HAVE MET YOUR EXPECTATIONS DURING YOUR EMERGENCY DEPARTMENT VISIT AND THAT YOU FEEL YOU HAVE RECEIVED EXCELLENT CARE! Insomnia Everybody has trouble sleeping now and then. When it becomes a frequent problem, you must look for an underlying cause. Depression can interfere with sleep. Anxiety keeps people from falling asleep, while true depression causes fitful sleep and early awakening. If you think anxiety or depression might be your problem, your doctor can help. Many medicines can interfere with sleep. Try cutting back or eliminating caffeine. Watch out for "energizing" vitamins and herbs! Alcohol interferes powerfully with normal sleep. "Rebound insomnia" results when you stop taking sedating medicines like antihistamines, antianxiety medicine, or sleeping pills. Any medical problem that causes pain or bladder discomfort can interfere with sleep. Discuss any problem you have with your doctor. Get regular exercise. Have regular sleep times. Don't "sleep in." Avoid late afternoon naps. Sleeping pills may be temporarily helpful, but are never a long-term solution. Referrals: TAYA BARKER, OLIVIA-C [NURSE PRACTITIONER] - Follow up as needed I personally performed the services described in the documentation, reviewed and edited the documentation which was dictated to the scribe in my presence, and it accurately records my words and actions.
[2020-02-18 00:41] VITALS: BP 121/55
== END 2020-02-18 00:50 | disposition home or self-care (01) ==
LOC: ER 21:59
DX: G47.00 Insomnia, unspecified (principal); R63.5 Abnormal weight gain; F17.210 Nicotine dependence, cigarettes, uncomplicated; F32.9 Major depressive disorder, single episode, unspecified; F41.9 Anxiety disorder, unspecified; Z79.899 Other long term (current) drug therapy; J45.909 Unspecified asthma, uncomplicated
CPT/HCPCS: 36415; 80053; 84443; 84703; 85025; 99283

== ENCOUNTER 2020-02-27 20:07 | Emergency (ER) | payer OTHER ==
[2020-02-27] MEDS ORDERED: ACETAMINOPHEN 325 MG TABLET PO ONE (21:13)
[2020-02-27] MEDS ORDERED: IBUPROFEN 600 MG TABLET PO ONE (21:13)
--- NOTE | 2020-02-27 21:17 | ER Document Report ---
ED General - General Chief Complaint: Sore Throat Stated Complaint: NAUSEA,VOMITING,SORE THROAT,EAR PAIN Time Seen by Provider: 02/27/20 21:05 Notes: Patient is a 24-year-old female that comes emergency department with chief complaint of fever, sore throat, and bilateral ear pain that started today. She was noted to have a fever of 102.8 on arrival. She denies cough, shortness of breath, headache, difficulty swallowing, abdominal pain, flank pain, chest pain, vomiting, diarrhea. Patient denies any obvious sick contacts. Patient does st ate that she missed her menstrual cycle and she might be . Past medical history of schizophrenia, medicated. She does smoke cigarettes but denies history of asthma or history of recreational drugs. TRAVEL OUTSIDE OF THE [place] IN LAST 30 DAYS: No - Related Data Allergies/Adverse Reactions: No Known Allergies Allergy (Verified 02/27/20 20:47) Past Medical History - General Information source: Patient - Social History Smoking Status: Never Smoker Frequency of alcohol use: None Drug Abuse: None Lives with: Family Family History: Reviewed & Not Pertinent Patient has homicidal ideation: No Pulmonary Medical History: Reports: Hx Asthma Renal/ Medical History: Denies: Hx Peritoneal Dialysis Psychiatric Medical History: Reports: Hx Anxiety, Hx Depression - Immunizations Hx Diphtheria, Pertussis, Tetanus Vaccination: Yes Review of Systems - Review of Systems Constitutional: See HPI EENT: See HPI Cardiovascular: No symptoms reported Respiratory: No symptoms reported Gastrointestinal: No symptoms reported Genitourinary: No symptoms reported Female Genitourinary: No symptoms reported Musculoskeletal: No symptoms reported Skin: No symptoms reported Hematologic/Lymphatic: No symptoms reported Neurological/Psychological: No symptoms reported Physical Exam - Vital signs Vitals: Temp Pulse Resp BP Pulse Ox 102.4 F H 119 H 18 125/81 100 02/27/20 20:26 02/27/20 20:26 02/27/20 20:26 02/27/20 20:26 02/27/20 20:26 - Notes Notes: GENERAL: Alert, interacts well. No acute distress. HEAD: Normocephalic, atraumatic. EYES: Pupils equal, round, and reactive to light. Extraocular movements intact. ENT: Oral mucosa moist, tongue midline. Oropharynx unremarkable. Airway patent. Nares patent, sinuses non-tender, ear canals unremarkable, TM's intact. NECK: Full range of motion. Supple. Trachea midline. No lymphadenopathy. LUNGS: Clear to auscultation bilaterally, no wheezes, rales, or rhonchi. No respiratory distress. Non-tender chest wall. HEART: Borderline tachycardia, normal rhythm, no murmur ABDOMEN: Soft, non-tender. Non-distended. EXTREMITIES: Moves all 4 extremities spontaneously. No edema, normal radial and dorsalis pedis pulses bilaterally. No cyanosis. BACK: no cervical, thoracic, lumbar midline tenderness. No saddle anesthesia, normal distal neurovascular exam. Moves all extremities in full range of motion. NEUROLOGICAL: Alert and oriented x3. Normal speech. Cranial nerves II through XII grossly intact. Strength 5/5 in all extremities. PSYCH: Normal affect, normal mood. SKIN: Warm, dry, normal turgor. No rashes or lesions noted. Course - Re-evaluation Re-evalutation: Patient is ambulatory, talkative, smiling, well-appearing. She is not obviously responding to internal stimuli, she is oriented, cooperative, and has normal affect. She is febrile and tachycardic however. Urinalysis unremarkable, test negative, CBC shows borderline leukocytosis with elevation of neutrophils but no bandemia. Nonspecific. Chemistry unremarkable. Strep is negative, oropharyngeal exam is unremarkable, ear exam is unremarkable. Repeat vital signs show borderline low blood pressure, still tachycardiac. Lactic acid checked and unremarkable, blood cultures are pending, chest x-ray checked and shows no concerning finding. On reevaluation patient is talkative, alert, energetic, ambulates without difficulty. She still has borderline tachycardia but otherwise her evaluation is unremarkable. Based on her symptoms, evaluation, I most strongly suspect a viral illness. We discussed options. Patient will be tested for COVID-19, strep test is pending, blood cultures pending, patient will be discharged with symptomatic management and strict return precautions which I discussed at length. Patient states agreement with plan, smiling and well-appearing at time of discharge. - Vital Signs Vital signs: Temp Pulse Resp BP Pulse Ox 99.0 F 111 H 20 141/75 H 98 02/27/20 23:49 02/27/20 23:49 02/27/20 23:49 02/27/20 23:49 02/27/20 23:49 - Laboratory Result Diagrams: 02/27/20 21:02 02/27/20 21:02 Laboratory results interpreted by me: 02/27/20 02/27/20 02/27/20 21:02 21:02 21:02 WBC 12.2 H RDW 15.1 H Absolute Neuts (auto) 9.8 H Seg Neutrophils % 80.0 H Sodium 135.5 L AST 75 H ALT 125 H Total Protein 9.2 H Ur Leukocyte Esterase TRACE H Discharge - Discharge Clinical Impression: Fever Qualifiers: Fever type: unspecified Qualified Code(s): R50.9 - Fever, unspecified Pharyngitis Qualifiers: Pharyngitis/tonsillitis etiology: unspecified etiology Qualified Code(s): J02.9 - Acute pharyngitis, unspecified Ear pain Qualifiers: Laterality: bilateral Qualified Code(s): H92.03 - Otalgia, bilateral Condition: Stable Disposition: HOME, SELF-CARE Additional Instructions: Your strep throat test is negative. Your evaluation does not show any concerning findings at this time. Take Tylenol and ibuprofen for fever, drink plenty of fluids, rest. I suspect you do have a viral illness, possibly COVID-19 as we discussed, this should just go away with time. You will be contacted with the results, please avoid contact with other people until you do, see additional instructions listed below. Come back if you worsen including if you cannot swallow, difficulty breathing, vomiting, or any other concerning or worsening symptoms. As a person under investigation for COVID-19, the [place] Department of Health and Human Services (division on public health) advises you to adhere to the following guidance until your test results are reported to you. If your test result is positive, you will receive additional information from your provider and your local health department at that time. Remain at home until you are cleared by the health provider or public health authorities. Keep a log of visitors to your home, notify any visitors to your home of your isolation status. If you plan to move to a new address or leave the [facility], notify the local [facility] in your [facility]. Call your Doctor or seek care if you have an urgent medical need. Before seeking medical care, call him to get instructions from the provider before arriving at the medical office, clinic, or hospital. Notify them that you are being tested for the virus (COVID-19) so that arrangements can be made, as necessary, to prevent transmission to others in the healthcare setting. Next, notify the local health department in your county. If a medical emergency arises and you need to call 911, inform the first responders that you are being tested for the virus that causes COVID-19. Next, notify the local health department in your county. Forms: Return to Work
[2020-02-27 21:22] LABS: APPEARANCE,URINE SLIGHTLY-CLOUDY; BILIRUBIN,URINE NEGATIVE (NEGATIVE); COLOR,URINE YELLOW; GLUCOSE, URINE NEGATIVE (NEGATIVE); KETONES,URINE NEGATIVE (NEGATIVE); LEUKOCYTE ESTERASE,URINE TRACE (NEGATIVE); NITRITE,URINE NEGATIVE (NEGATIVE); PROTEIN,URINE NEGATIVE (NEGATIVE); URINE SPECIFIC GRAVITY 1.019; UROBILINOGEN,URINE NEGATIVE mg/dL (<2.0)
[2020-02-27 21:29] LABS: ABSOLUTE EOSINOPHILS # (AUTO) 0.1 10^3/uL (0.0-0.6); ABSOLUTE MONOCYTES (AUTO) 0.6 10^3/uL (0.1-1.4); MEAN CORPUSCULAR HGB CONC 33.5 g/dL (32.0-36.0); TOTAL CELLS COUNTED % (AUTO) 100 %
[2020-02-27 21:31] LABS: ALBUMIN 4.5 g/dL (3.5-5.0); ALKALINE PHOSPHATASE 125 U/L (38-126); ANION GAP 8 (5-19); ASPARTATE AMINO TRANSFERASE 75 U/L (14-36); BILIRUBIN,TOTAL 0.5 mg/dL (0.2-1.3); BLOOD UREA NITROGEN 9 mg/dL (7-20); CALCIUM 9.8 mg/dL (8.4-10.2); CARBON DIOXIDE 30 mmol/L (22-30); CHLORIDE 98 mmol/L (98-107); GLUCOSE 103 mg/dL (75-110); POTASSIUM 4.3 mmol/L (3.6-5.0); TOTAL PROTEIN 9.2 g/dL (6.3-8.2)
[2020-02-27 21:35] LABS: ABSOLUTE BASOPHILS # (AUTO) 0.1 10^3/uL (0.0-0.2); ABSOLUTE LYMPHOCYTES (AUTO) 1.6 10^3/uL (0.5-4.7); ABSOLUTE NEUT (AUTO) 9.8 10^3/uL (1.7-8.2); BASOPHILS % (AUTO) 0.6 % (0-2); EOSINOPHILS % (AUTO) 0.7 % (0-6); HEMATOCRIT 36.3 % (36.0-47.0); HEMOGLOBIN 12.2 g/dL (12.0-15.5); LYMPHOCYTES % (AUTO) 13.4 % (13-45); MEAN CORPUSCULAR HEMOGLOBIN 27.9 pg (27.0-33.4); MEAN CORPUSCULAR VOLUME 83 fl (80-97); MONOCYTES % (AUTO) 5.3 % (3-13); PLATELET COUNT 305 10^3/uL (150-450); RED BLOOD COUNT 4.37 10^6/uL (3.72-5.28); RED CELL DISTRIBUTION WIDTH 15.1 % (11.5-14.0); WHITE BLOOD COUNT 12.2 10^3/uL (4.0-10.5)
[2020-02-27] MEDS ORDERED: NORMAL SALINE 1000 ML 1,000 ML IV ONE (22:25)
--- NOTE | 2020-02-27 23:05 | RADIOLOGY REPORT (SQ) ---
EXAM DESCRIPTION: XR CHEST 1 VIEW COMPLETED DATE/TME: 02/27/2020 22:26 CLINICAL HISTORY: 24 years, Female, fever, tachycardia, low blood pressure COMPARISON: None. NUMBER OF VIEWS: 1 TECHNIQUE: Portable chest LIMITATIONS: None. FINDINGS: Heart size normal. Lungs clear. No pneumothorax IMPRESSION: Negative chest copyright 2011 [employer]- All Rights Reserved
[2020-02-27 23:50] VITALS: BP 141/75
== END 2020-02-28 00:04 | disposition home or self-care (01) ==
LOC: ER 20:07
DX: J02.9 Acute pharyngitis, unspecified (principal); R11.2 Nausea with vomiting, unspecified; H92.03 Otalgia, bilateral; R50.9 Fever, unspecified; F20.9 Schizophrenia, unspecified; Z79.899 Other long term (current) drug therapy; R00.0 Tachycardia, unspecified; Z20.828 Contact with and (suspected) exposure to other viral communicable diseases
CPT/HCPCS: 99283; 96360; 36415; 87040; 87070; 87880; 83605; 85025; 87635; 81025; 87077; 80053; 81001; 71045; J7030; C9803

== ENCOUNTER 2020-04-25 22:55 | Emergency (ER) | payer OTHER ==
[2020-04-25] MEDS ORDERED: ACETAMINOPHEN 325 MG TABLET PO ONE (23:28)
--- NOTE | 2020-04-25 23:30 | ER Document Report ---
ED Medical Screen (RME) - General Chief Complaint: Pelvic Pain Stated Complaint: PELVIC PAIN Time Seen by Provider: 04/25/20 23:21 Mode of Arrival: Ambulatory Information source: Patient Notes: HPI; 24-year-old female presents emergency room complaining of intermittent bleeding that started last week. States her last menstrual cycle was in December she bled for 2 days last week. States she stopped and then started bleeding again on Wednesday into Wednesday with heavy clots. Currently no bleeding but complaining of abdominal cramping. She is a 3 para 0. Sexually active not using any form of control. PE: Alert and oriented x3. Mild distress noted. Lungs: Clear to auscultation without rales, rhonchi, wheezes. Heart: Regular rate rhythm without murmurs, rubs, gallops. I have greeted and performed a rapid initial assessment of this patient. A comprehensive ED assessment and evaluation of the patient, analysis of test results and completion of the medical decision making process will be conducted by additional ED providers. I have specifically instructed the patient or family members with the patient to immediately return to any nursing staff should anything change in the patient's condition or with their chief complaint. TRAVEL OUTSIDE OF THE [place] IN LAST 30 DAYS: No - Related Data Allergies/Adverse Reactions: No Known Allergies Allergy (Verified 02/27/20 20:47) Past Medical History - Social History Frequency of alcohol use: None Drug Abuse: None Pulmonary Medical History: Reports: Hx Asthma Renal/ Medical History: Denies: Hx Peritoneal Dialysis Psychiatric Medical History: Reports: Hx Anxiety, Hx Depression - Immunizations Hx Diphtheria, Pertussis, Tetanus Vaccination: Yes Physical Exam - Vital signs Vitals: Temp Pulse Resp BP Pulse Ox 98.2 F 89 18 130/65 H 96 04/25/20 23:20 04/25/20 23:20 04/25/20 23:20 04/25/20 23:20 04/25/20 23:20 Course - Vital Signs Vital signs: Temp Pulse Resp BP Pulse Ox 98.2 F 89 18 130/65 H 96 04/25/20 23:20 04/25/20 23:20 04/25/20 23:20 04/25/20 23:20 04/25/20 23:20
--- NOTE | 2020-04-26 01:15 | RADIOLOGY REPORT (SQ) ---
EXAM DESCRIPTION: US PELVIS TRANSVAGINAL COMPLETED DATE/TME: 04/25/2020 23:27 CLINICAL HISTORY: 24 years Female vaginal bleeding COMPARISON: None. TECHNIQUE: Transvaginal duplex imaging performed to evaluate the pelvis. FINDINGS: The uterus measures 8.5 x 4.2 cm. Cervix measures 2.6 cm and appears closed. Endometrial stripe 1.2 cm. Right ovary measures 2.8 x 2.4 cm adjacent cystic area measures 1.8 x 1.5 cm consistent with a paraovarian cyst. No follow-up is recommended. Left ovary not seen. Examination is limited by body habitus. IMPRESSION: Thickened mildly heterogeneous endometrium. Hypoechoic area may reflect some acute hemorrhage or fluid within the endometrial canal Simple appearing right adnexal cyst for which no follow-up is recommended
[2020-04-26 03:58] LABS: ABSOLUTE BASOPHILS # (AUTO) 0.1 10^3/uL (0.0-0.2); ABSOLUTE EOSINOPHILS # (AUTO) 0.1 10^3/uL (0.0-0.6); ABSOLUTE LYMPHOCYTES (AUTO) 2.8 10^3/uL (0.5-4.7); ABSOLUTE MONOCYTES (AUTO) 0.5 10^3/uL (0.1-1.4); ABSOLUTE NEUT (AUTO) 3.8 10^3/uL (1.7-8.2); BASOPHILS % (AUTO) 1.3 % (0-2); EOSINOPHILS % (AUTO) 1.5 % (0-6); HEMATOCRIT 35.5 % (36.0-47.0); HEMOGLOBIN 12.2 g/dL (12.0-15.5); MEAN CORPUSCULAR HEMOGLOBIN 28.5 pg (27.0-33.4); MEAN CORPUSCULAR HGB CONC 34.5 g/dL (32.0-36.0); MEAN CORPUSCULAR VOLUME 83 fl (80-97); MONOCYTES % (AUTO) 6.7 % (3-13); PLATELET COUNT 312 10^3/uL (150-450); RED BLOOD COUNT 4.29 10^6/uL (3.72-5.28); RED CELL DISTRIBUTION WIDTH 14.9 % (11.5-14.0); SEGMENTED NEUTROPHILS % (AUTO) 52.5 % (42-78); TOTAL CELLS COUNTED % (AUTO) 100 %; WHITE BLOOD COUNT 7.3 10^3/uL (4.0-10.5)
[2020-04-26 04:19] LABS: ALBUMIN 4.7 g/dL (3.5-5.0); ALKALINE PHOSPHATASE 124 U/L (38-126); ANION GAP 10 (5-19); ASPARTATE AMINO TRANSFERASE 68 U/L (14-36); BILIRUBIN,DIRECT 0.3 mg/dL (0.0-0.4); BILIRUBIN,TOTAL 0.7 mg/dL (0.2-1.3); BLOOD UREA NITROGEN 8 mg/dL (7-20); CALCIUM 9.7 mg/dL (8.4-10.2); CARBON DIOXIDE 27 mmol/L (22-30); CHLORIDE 103 mmol/L (98-107); GLUCOSE 104 mg/dL (75-110); POTASSIUM 4.4 mmol/L (3.6-5.0); TOTAL PROTEIN 9.1 g/dL (6.3-8.2)
[2020-04-26 04:54] LABS: AMORPHOUS SEDIMENT,URINE TRACE /HPF; APPEARANCE,URINE CLOUDY; BILIRUBIN,URINE NEGATIVE (NEGATIVE); GLUCOSE, URINE NEGATIVE (NEGATIVE); KETONES,URINE NEGATIVE (NEGATIVE); LEUKOCYTE ESTERASE,URINE SMALL (NEGATIVE); NITRITE,URINE POSITIVE (NEGATIVE); PROTEIN,URINE 100 mg/dL (NEGATIVE)
[2020-04-26 04:57] LABS: COLOR,URINE YELLOW
[2020-04-26] MEDS ORDERED: CEFTRIAXONE INJ 250 MG VIAL IM ONE (08:32)
[2020-04-26] MEDS ORDERED: LIDOCAINE 1% INJ-PF (10 MG/ML) 30 ML SDV IM ONE (08:32)
[2020-04-26] MEDS ORDERED: AZITHROMYCIN 250 MG TABLET PO ONE (08:32)
--- NOTE | 2020-04-26 08:33 | ER Document Report ---
ED General - General Chief Complaint: Pelvic Pain Stated Complaint: PELVIC PAIN Time Seen by Provider: 04/25/20 23:21 Mode of Arrival: Ambulatory Information source: Patient Notes: Otherwise healthy 24-year-old female presenting to the emergency department complaining of intermittent vaginal bleeding. Patient reports her last normal menstrual cycle was in either December or January. Prior to that she states she always had regular periods she is sexually active, she is not on any control. She states last week she had a light. That ended 7 days ago. She states she then started bleeding about 5 days ago, she states it was dark, heavy and she was passing quarter size blood clots. She states the bleeding has subsided, she has mild low abdominal cramping. She denies any dysuria, urinary frequency, urinary urgency, fever, chills, nausea, vomiting or abnormal vaginal discharge. TRAVEL OUTSIDE OF THE [place] IN LAST 30 DAYS: No - Related Data Allergies/Adverse Reactions: No Known Allergies Allergy (Verified 02/27/20 20:47) Past Medical History - General Information source: Patient - Social History Smoking Status: Never Smoker Frequency of alcohol use: None Drug Abuse: None Family History: CAD, Hypertension Pulmonary Medical History: Reports: Hx Asthma Renal/ Medical History: Denies: Hx Peritoneal Dialysis Psychiatric Medical History: Reports: Hx Anxiety, Hx Depression Surgical Hx: Negative - Immunizations Hx Diphtheria, Pertussis, Tetanus Vaccination: Yes Review of Systems - Review of Systems Constitutional: No symptoms reported EENT: No symptoms reported Cardiovascular: No symptoms reported Respiratory: No symptoms reported Gastrointestinal: Abdominal pain - cramping Genitourinary: No symptoms reported Female Genitourinary: Heavy/abnormal periods, Irregular period. denies: Vaginal discharge Musculoskeletal: No symptoms reported Skin: No symptoms reported Hematologic/Lymphatic: No symptoms reported Neurological/Psychological: No symptoms reported Physical Exam - Vital signs Vitals: Temp Pulse Resp BP Pulse Ox 98.2 F 89 18 130/65 H 96 04/25/20 23:20 04/25/20 23:20 04/25/20 23:20 04/25/20 23:20 04/25/20 23:20 - Notes Notes: PHYSICAL EXAMINATION: GENERAL: Well-appearing, well-nourished and in no acute distress. HEAD: Atraumatic, normocephalic. EYES: Pupils equal round and reactive to light, extraocular movements intact, conjunctiva are normal. ENT: Nares patent, oropharynx clear without exudates. Moist mucous membranes. NECK: Normal range of motion, supple without lymphadenopathy LUNGS: Breath sounds clear to auscultation bilaterally and equal. No wheezes rales or rhonchi. HEART: Regular rate and rhythm without murmurs ABDOMEN: Soft, nondistended abdomen. Mild low abd tenderness in the LLQ/suprapubic area. No guarding, no rebound. No masses appreciated. Female : Normal external genitalia, no abnormal vaginal discharge noted, no adnexal or cervical motion tenderness. Musculoskeletal: Normal range of motion, no pitting or edema. No cyanosis. NEUROLOGICAL: Cranial nerves grossly intact. Normal speech, normal gait. Normal sensory, motor exams PSYCH: Normal mood, normal affect. SKIN: Warm, Dry, normal turgor, no rashes or lesions noted. Course - Re-evaluation Re-evalutation: 04/26/20 09:06 Pelvic exam chaperoned by OLIVIA Alvarado Student. - Vital Signs Vital signs: Temp Pulse Resp BP Pulse Ox 98.1 F 74 20 148/83 H 98 04/26/20 06:10 04/26/20 06:10 04/26/20 06:10 04/26/20 06:10 04/26/20 06:10 - Laboratory Result Diagrams: 04/26/20 03:42 04/26/20 03:42 Laboratory results interpreted by me: 04/26/20 04/26/20 04/26/20 03:42 03:42 04:20 Hct 35.5 L RDW 14.9 H AST 68 H ALT 106 H Total Protein 9.1 H Urine Protein 100 H Urine Blood LARGE H Urine Nitrite POSITIVE H Urine Urobilinogen 2.0 H Ur Leukocyte Esterase SMALL H Urine Ascorbic Acid 20 H - Diagnostic Test Radiology reviewed: Reports reviewed Discharge - Discharge Clinical Impression: Bacterial vaginosis Condition: Stable Disposition: HOME, SELF-CARE Additional Instructions: You have an overgrowth of natural vaginal bacteria, called bacterial vaginosis. You are also being treated for a urinary tract infection. Complete all of the antibiotics even if your symptoms have resolved. Return for abdominal pain, vomiting, fever of greater than 101F, or any other symptoms that are worrisome to you. Please follow-up with your [employer] BUSINESS INTELLIGENCE CONSULTANT or primary care doctor as needed. Prescriptions: Cephalexin [Cephalexin 500 MG Tablet] 500 mg PO BID #14 tablet Clindamycin HCl 300 mg PO BID #14 capsule Fluconazole [Diflucan] 150 mg PO ONCE PRN #1 tablet PRN Reason: Forms: Return to Work
[2020-04-26 09:13] LABS: BACTERIA (WET MOUNT) 3+ BACTERIA SEEN; EPITHELIALS (WET MOUNT) 3+ EPITHELIALS SEEN; T.VAGINALIS (WET MOUNT) NO TRICHOMONAS SEEN; WBCS (WET MOUNT) FEW WBCS SEEN; YEAST (WET MOUNT) NO YEAST SEEN
[2020-04-26 10:22] VITALS: BP 124/59
[2020-04-26 10:39] LABS: CHLAM PCR NOT DETECTED (NOT DETECT)
== END 2020-04-26 10:19 | disposition home or self-care (01) ==
LOC: ER 22:55
DX: N76.0 Acute vaginitis (principal); B96.89 Other specified bacterial agents as the cause of diseases classified elsewhere; R10.2 Pelvic and perineal pain
CPT/HCPCS: 99285; 96372; 36415; 87210; 84703; 85025; 80053; 81001; 87491; 87591; 76830; 93976; J3490; J0696